=== PATIENT | male | born 1955 | race Caucasian/White ===

== ENCOUNTER 2018-12-02 20:32 | Outpatient (REF) | payer MEDICARE, SELFPAY ==
[2018-12-02 22:17] LABS: HCT 48.2 % (40.0-50.0); HGB 16.6 g/dL (13.5-17.5)
[2018-12-02 22:56] LABS: Anion Gap 11.4 mmol/L (3-11); BUN 32 mg/dL (7-18); CO2 25.6 mmol/L (21.0-32.0); CREATININE 2.31 mg/dL (0.70-1.30); Calcium 9.4 mg/dL (8.5-10.1); Chloride 102 mmol/L (98-107); Cholesterol 184 mg/dL (50-200); Estimated GFR 28.81 (mL/min/1.73m2); Glucose 99 mg/dL (70-100); HDL Cholesterol 50 mg/dL (40-60); LDL CHOLESTEROL 97 mg/dL (<100); Potassium 4.1 mmol/L (3.5-5.1); Sodium 139 mmol/L (136-145); Triglyceride 278 mg/dL (30-150)
[2018-12-02 23:13] LABS: Uric Acid 4.7 mg/dL (3.5-7.2)
== END 2018-12-02 20:52 ==
LOC: NCHCN 20:32
PROVIDERS: PCP Specialist/Technologist Athletic Trainer; Visit Provider Specialist/Technologist Athletic Trainer
DX: N28.9 Disorder of kidney and ureter, unspecified (principal); M10.9 Gout, unspecified; E78.5 Hyperlipidemia, unspecified
CPT/HCPCS: 80048; 80061; 83721; 84550; 85014; 85018

== ENCOUNTER 2018-12-16 15:28 | Outpatient (CLI) | payer MEDICARE, SELFPAY ==
[2018-12-16 16:36] LABS: BUN 29 mg/dL (7-18); CREATININE 2.04 mg/dL (0.70-1.30); Calcium 8.9 mg/dL (8.5-10.1); Chloride 103 mmol/L (98-107); Estimated GFR 33.26 (mL/min/1.73m2); Glucose 102 mg/dL (70-100); Potassium 4.2 mmol/L (3.5-5.1); Sodium 141 mmol/L (136-145)
== END 2018-12-16 15:48 ==
PROVIDERS: PCP Specialist/Technologist Athletic Trainer; Visit Provider Specialist/Technologist Athletic Trainer
DX: N28.9 Disorder of kidney and ureter, unspecified (principal)
CPT/HCPCS: 36415; 80048

== ENCOUNTER 2019-06-03 09:25 | Outpatient (REF) | payer MEDICARE, SELFPAY ==
[2019-06-05 09:20] LABS: PSA, Screening 3.6 ng/ml (0-4.5)
== END 2019-06-03 09:45 ==
LOC: NCHCN 09:25
PROVIDERS: PCP Specialist/Technologist Athletic Trainer; Visit Provider Nurse Practitioner Family
DX: Z12.5 Encounter for screening for malignant neoplasm of prostate (principal); R97.20 Elevated prostate specific antigen [PSA]
CPT/HCPCS: 84153

== ENCOUNTER 2019-11-26 02:25 | Outpatient (CLI) | payer MEDICARE, SELFPAY ==
[2019-11-26 08:32] LABS: Anion Gap 12.7 mmol/L (3-11); BUN 27 mg/dL (7-18); CO2 22.3 mmol/L (21.0-32.0); CREATININE 1.95 mg/dL (0.70-1.30); Calcium 9.1 mg/dL (8.5-10.1); Calculated LDL 104 mg/dL; Chloride 105 mmol/L (98-107); Cholesterol 193 mg/dL (<200); Estimated GFR 34.92 (mL/min/1.73m2); Glucose 107 mg/dL (74-106); HDL Cholesterol 52 mg/dL (40-60); Potassium 4.7 mmol/L (3.5-5.1); Sodium 140 mmol/L (136-145); Triglyceride 185 mg/dL (<150)
== END 2019-11-26 02:45 ==
PROVIDERS: PCP Nurse Practitioner Family; Visit Provider Nurse Practitioner Family
DX: E78.5 Hyperlipidemia, unspecified (principal); N28.9 Disorder of kidney and ureter, unspecified; F32.9 Major depressive disorder, single episode, unspecified; K21.9 Gastro-esophageal reflux disease without esophagitis; R97.20 Elevated prostate specific antigen [PSA]
CPT/HCPCS: 36415; 80048; 80061

== ENCOUNTER 2019-12-03 10:11 | Outpatient (REF) | payer MEDICARE, SELFPAY ==
[2019-12-03 23:08] LABS: HCT 48.2 % (40.0-50.0); HGB 16.6 g/dL (13.5-17.5); Mean Corp. HGB Concentration 34.4 g/dL (32.0-36.0); Mean Corpuscular Hemoglobin 31.1 pg (27.0-33.0); Mean Corpuscular Volume 90.3 fL (80-95); Mean Platelet Volume 12.6 fL (8.0-11.0); Platelet Count 153 x1000/uL (130-400); RBC 5.34 m/cumm (4.50-6.00); RBC Distribution Width 13.6 % (11.8-14.1); White Blood Cell Count 7.55 k/cumm (4.4-10.8)
[2019-12-03 23:32] LABS: TSH (W/Ref FT4) 2.23 uIU/mL (0.36-3.74); Vitamin B12 480 pg/mL (193-986)
[2019-12-04 04:45] LABS: Vitamin D 25 Total 48.3 ng/ml (30-100)
== END 2019-12-03 10:31 ==
LOC: NCHCN 10:11
PROVIDERS: PCP Nurse Practitioner Family; Visit Provider Nurse Practitioner Family
DX: R53.83 Other fatigue (principal); N28.9 Disorder of kidney and ureter, unspecified; N18.3 Chronic kidney disease, stage 3 (moderate); I10 Essential (primary) hypertension; Q35.9 Cleft palate, unspecified
CPT/HCPCS: 82306; 85027; 82607; 84443

== ENCOUNTER 2020-03-02 10:27 | Outpatient (REF) | payer MEDICARE, SELFPAY | END 2020-03-02 10:47 | LOC: NCHCN 10:27 | PROVIDERS: PCP Nurse Practitioner Family; Visit Provider Nurse Practitioner Family | DX: N28.9 Disorder of kidney and ureter, unspecified (principal); Z13.89 Encounter for screening for other disorder | CPT/HCPCS: 87086 ==

== ENCOUNTER 2020-05-26 09:08 | Outpatient (REF) | payer MEDICARE, SELFPAY ==
[2020-05-26 20:33] LABS: Anion Gap 10.1 mmol/L (3-11); BUN 32 mg/dL (7-18); CO2 23.9 mmol/L (21.0-32.0); CREATININE 2.08 mg/dL (0.70-1.30); Calcium 9.3 mg/dL (8.5-10.1); Chloride 103 mmol/L (98-107); Estimated GFR 32.41 (mL/min/1.73m2); Glucose 111 mg/dL (74-106); Potassium 4.5 mmol/L (3.5-5.1); Sodium 137 mmol/L (136-145)
[2020-05-28 09:29] LABS: PSA, Screening 3.8 ng/mL (0.0-4.5)
== END 2020-05-26 09:28 ==
LOC: NCHCN 09:08
PROVIDERS: PCP Nurse Practitioner Family; Visit Provider Nurse Practitioner Family
DX: I10 Essential (primary) hypertension (principal); N28.9 Disorder of kidney and ureter, unspecified; E78.5 Hyperlipidemia, unspecified; R97.20 Elevated prostate specific antigen [PSA]; Z12.5 Encounter for screening for malignant neoplasm of prostate
CPT/HCPCS: 80048; 84153

== ENCOUNTER 2020-10-19 09:15 | Outpatient (REF) | payer MEDICARE, SELFPAY ==
[2020-10-19 19:44] LABS: Anion Gap 12.8 mmol/L (3-11); BUN 37 mg/dL (7-18); CO2 19.2 mmol/L (21.0-32.0); CREATININE 1.97 mg/dL (0.70-1.30); Calcium 9.5 mg/dL (8.5-10.1); Chloride 104 mmol/L (98-107); Glucose 109 mg/dL (74-106); Potassium 5.1 mmol/L (3.5-5.1); Sodium 136 mmol/L (136-145); Uric Acid 4.7 mg/dL (3.5-7.2)
[2020-10-20 12:57] LABS: Calculated LDL 130 mg/dL (<100); Cholesterol 208 mg/dL (<200); HDL Cholesterol 54 mg/dL (40-60); Triglyceride 123 mg/dL (<150)
[2020-10-20 21:28] LABS: PSA, Screening 3.8 ng/mL (0.0-4.5)
== END 2020-10-19 09:35 ==
LOC: NCHCN 09:15
PROVIDERS: PCP Nurse Practitioner Family; Visit Provider Nurse Practitioner Family
DX: E78.5 Hyperlipidemia, unspecified (principal); I10 Essential (primary) hypertension; Z12.5 Encounter for screening for malignant neoplasm of prostate; R97.20 Elevated prostate specific antigen [PSA]
CPT/HCPCS: 80048; 80061; 84153; 84550

== ENCOUNTER 2021-04-19 09:07 | Outpatient (REF) | payer MEDICARE, SELFPAY ==
[2021-04-19 15:48] LABS: ALT 33 U/L (16-63); AST 14 U/L (15-37); HDL Cholesterol 54 mg/dL (40-60); LDL CHOLESTEROL 120 mg/dL (<100)
[2021-04-19 16:20] LABS: Creatine Kinase 47 U/L (39-308)
== END 2021-04-19 09:08 | disposition home or self-care (01) ==
LOC: NCHCN 09:07
PROVIDERS: PCP Nurse Practitioner Family; Visit Provider Nurse Practitioner Family
DX: E78.5 Hyperlipidemia, unspecified (principal)
CPT/HCPCS: 82550; 83721; 83718; 84450; 84460

== ENCOUNTER 2022-02-01 17:20 | Outpatient (REF) | payer OTHER, SELFPAY ==
[2022-02-01 12:40] LABS: Hemoglobin A1C 5.7 % (<5.7)
[2022-02-01 12:41] LABS: Anion Gap 12.4 mmol/L (3-11); BUN 30 mg/dL (7-18); CO2 20.6 mmol/L (21.0-32.0); CREATININE 1.8 mg/dL (0.70-1.30); Calcium 9.1 mg/dL (8.5-10.1); Calculated LDL 100 mg/dL (<100); Chloride 102 mmol/L (98-107); Cholesterol 193 mg/dL (<200); Estimated GFR 38.06 (mL/min/1.73m2); Glucose 104 mg/dL (74-106); HDL Cholesterol 52 mg/dL (40-60); Potassium 4.7 mmol/L (3.5-5.1); Sodium 135 mmol/L (136-145); Triglyceride 209 mg/dL (<150)
[2022-02-01 22:54] LABS: PSA, Diagnostic 3.3 ng/mL (0.0-4.5)
== END 2022-02-01 17:21 | disposition home or self-care (01) ==
LOC: NCHCN 17:20
PROVIDERS: PCP Nurse Practitioner Family; Visit Provider Nurse Practitioner Family
DX: E78.5 Hyperlipidemia, unspecified (principal); R97.21 Rising PSA following treatment for malignant neoplasm of prostate; N40.0 Benign prostatic hyperplasia without lower urinary tract symptoms; I10 Essential (primary) hypertension
CPT/HCPCS: 80048; 80061; 83036; 84153

== ENCOUNTER 2023-02-14 13:29 | Outpatient (REF) | payer OTHER, SELFPAY ==
[2023-02-14 17:19] LABS: Anion Gap 8.4 mmol/L (3-11); BUN 34 mg/dL (7-18); CO2 25.6 mmol/L (21.0-32.0); CREATININE 1.9 mg/dL (0.70-1.30); Calcium 9.4 mg/dL (8.5-10.1); Chloride 104 mmol/L (98-107); Estimated GFR 38.42 (mL/min/1.73m2); Glucose 98 mg/dL (74-106); Potassium 4.9 mmol/L (3.5-5.1); Sodium 138 mmol/L (136-145); Vitamin B12 426 pg/mL (193-986)
[2023-02-16 09:14] LABS: PSA, Diagnostic 3.3 ng/mL (<=4.5)
== END 2023-02-14 13:30 | disposition home or self-care (01) ==
LOC: NCHCN 13:29
PROVIDERS: PCP Nurse Practitioner Family; Visit Provider Nurse Practitioner Family
DX: I10 Essential (primary) hypertension (principal); R97.21 Rising PSA following treatment for malignant neoplasm of prostate; Z79.899 Other long term (current) drug therapy
CPT/HCPCS: 80048; 82607; 84153

== ENCOUNTER 2023-09-12 21:11 | Outpatient (REF) | payer OTHER, SELFPAY ==
[2023-09-12 20:58] LABS: Anion Gap 12.1 mmol/L (3-11); BUN 35 mg/dL (7-18); CO2 20.9 mmol/L (21.0-32.0); CREATININE 2.1 mg/dL (0.70-1.30); Calcium 9.8 mg/dL (8.5-10.1); Chloride 105 mmol/L (98-107); Estimated GFR 33.87 (mL/min/1.73m2); Glucose 124 mg/dL (74-106); Potassium 4.6 mmol/L (3.5-5.1); Sodium 138 mmol/L (136-145)
== END 2023-09-12 21:12 | disposition home or self-care (01) ==
LOC: NCHCN 21:11
PROVIDERS: PCP Nurse Practitioner Family; Visit Provider Nurse Practitioner Family
DX: N18.30 Chronic kidney disease, stage 3 unspecified (principal)
CPT/HCPCS: 80048

== ENCOUNTER 2024-02-20 15:26 | Outpatient (REF) | payer OTHER, SELFPAY ==
[2024-02-20 17:10] LABS: Anion Gap 10.4 mmol/L (3-11); BUN 32 mg/dL (7-18); CO2 25.6 mmol/L (21.0-32.0); Calcium 9.5 mg/dL (8.5-10.1); Chloride 105 mmol/L (98-107); Estimated GFR 35.91 (mL/min/1.73m2); Glucose 129 mg/dL (74-106); Potassium 5.2 mmol/L (3.5-5.1); Sodium 141 mmol/L (136-145)
[2024-02-21 17:32] LABS: PSA, Screening 4.1 ng/mL (<=4.5)
== END 2024-02-20 15:27 | disposition home or self-care (01) ==
LOC: NCHCN 15:26
PROVIDERS: PCP Nurse Practitioner Family; Visit Provider Nurse Practitioner Family
DX: I10 Essential (primary) hypertension (principal); Z12.5 Encounter for screening for malignant neoplasm of prostate
CPT/HCPCS: 80048; 80061; 84153; 83036; 84443

== ENCOUNTER 2024-10-21 10:13 | Outpatient (REF) | payer OTHER, SELFPAY ==
[2024-10-21 16:19] LABS: BUN 36 mg/dL (7-18); CREATININE 1.9 mg/dL (0.70-1.30); Calcium 9.6 mg/dL (8.5-10.1); Calculated LDL 128 mg/dL (<100); Chloride 106 mmol/L (98-107); Cholesterol 229 mg/dL (<200); Estimated GFR 37.95 (mL/min/1.73m2); Glucose 125 mg/dL (74-106); HDL Cholesterol 57 mg/dL (40-60); Potassium 5.4 mmol/L (3.5-5.1); Sodium 139 mmol/L (136-145); Triglyceride 221 mg/dL (<150)
== END 2024-10-21 10:14 | disposition home or self-care (01) ==
LOC: NCHCN 10:13
PROVIDERS: PCP Physician Assistant Medical; Visit Provider Physician Assistant Medical
DX: N18.30 Chronic kidney disease, stage 3 unspecified (principal)
CPT/HCPCS: 80048; 80061; 83036

== ENCOUNTER 2025-04-21 12:02 | Outpatient (REF) | payer MEDICARE, SELFPAY ==
[2025-04-21 16:04] LABS: Hemoglobin A1C 6.7 % (<5.7)
[2025-04-21 16:05] LABS: ALT 25 U/L (16-63); AST 17 U/L (15-37); Alkaline Phosphatase 122 U/L (46-116); Anion Gap 9.2 mmol/L (3-11); BUN 35 mg/dL (7-18); Bilirubin, Total 0.7 mg/dL (0.2-1.0); CO2 25.8 mmol/L (21.0-32.0); CREATININE 1.8 mg/dL (0.70-1.30); Calcium 9.2 mg/dL (8.5-10.1); Calculated LDL 104 mg/dL (<100); Chloride 102 mmol/L (98-107); Cholesterol 192 mg/dL (<200); Estimated GFR 40.49 (mL/min/1.73m2); Glucose 148 mg/dL (74-106); HDL Cholesterol 51 mg/dL (>or=40); Potassium 4.9 mmol/L (3.5-5.1); Sodium 137 mmol/L (136-145); Total Protein 7.5 g/dL (6.4-8.2); Triglyceride 185 mg/dL (<150)
[2025-04-21 16:18] LABS: COMMENT (LAB VIEW ONLY) 66.23 mg/dL; Microalb ug/mg Crea 39.6 ug/mg Cr
== END 2025-04-21 12:03 | disposition home or self-care (01) ==
LOC: NCHCN 12:02
PROVIDERS: PCP Physician Assistant Medical; Visit Provider Physician Assistant Medical
DX: N18.30 Chronic kidney disease, stage 3 unspecified (principal); R73.03 Prediabetes; R97.20 Elevated prostate specific antigen [PSA]; M10.9 Gout, unspecified; E78.5 Hyperlipidemia, unspecified
CPT/HCPCS: 80048; 80053; 80061; 82043; 82570; 83036; 84153; 84550

== ENCOUNTER 2025-05-05 01:31 | Outpatient (CLI) | payer MEDICARE, SELFPAY ==
--- NOTE | 2025-05-05 08:00 | DI.US_ITS ---
Exam(s) US AAA SCREENING EXAM: US AAA SCREENING CLINICAL HISTORY: Essential (primary) hypertension, I10 COMPARISON: CT ABD PELVIS WITH CONTRAST from 11/11/2016 US ABDOMEN ULTRASOUND (P) from 11/11/2016 FINDINGS: Abdominal Aorta: Proximal: 2.0 x 2.0 cm Mid: 1.8 x 1.6 cm Distal: 1.7 x 1.6 cm Iliac's: Right: 1.3 x 1.2 cm Left: 1.1 x 1.4 cm No significant atherosclerotic disease is seen. IMPRESSION: No evidence of abdominal aortic aneurysm. DATA REPOSITORY:
== END 2025-05-05 01:51 ==
PROVIDERS: PCP Physician Assistant Medical; Visit Provider Physician Assistant Medical
DX: Z13.6 Encounter for screening for cardiovascular disorders (principal); I10 Essential (primary) hypertension
CPT/HCPCS: 76706